=== PATIENT | male | born 1990 | race Caucasian/White ===

== ENCOUNTER 2017-02-12 07:49 | Day surgery (SDC) | payer OTHER ==
[~2017-02-12 07:49] MED LIST: RINGER'S SOLUTION,LACTATED 1,000 ML IV PRN; ceFAZolin SODIUM 1 GM VIAL IV PRN
[2017-02-12] MEDS ORDERED: RINGER'S SOLUTION,LACTATED 1,000 ML IV ONE (08:20)
[2017-02-12] MEDS ORDERED: BUPIVACAINE HCL 50 ML VIAL IJ ONE (08:57)
[2017-02-12] MEDS ORDERED: RINGER'S SOLUTION,LACTATED 1,000 ML IV PRN (09:35)
[2017-02-12] MEDS ORDERED: oxyCODONE HCL/ACETAMINOPHEN 1 TAB TABLET PO PRN (09:36)
[2017-02-12] MEDS ORDERED: HYDROmorphone HCL 2 MG/ML VIAL IV PRN (09:37)
[2017-02-12 10:28] VITALS: BP 118/77
== END 2017-02-12 07:50 | disposition home or self-care (01) ==
LOC: AMB 07:49
PROVIDERS: ATTEND Orthopaedic Surgery
PROC: 0XBG0ZZ Excision of Right Wrist Region, Open Approach (ICD-10-PCS; principal; 2017-02-12 08:00)
DX: M67.431 Ganglion, right wrist (principal); F17.200 Nicotine dependence, unspecified, uncomplicated; Z68.1 Body mass index [BMI] 19.9 or less, adult